=== PATIENT | female | born 1965 | race Caucasian/White ===

== ENCOUNTER 2020-09-20 11:24 | Emergency (ER) | payer MEDICARE, SELFPAY ==
[2020-09-20 11:39] VITALS: BP 142/88; PULSE 95; RESP 16; TEMP 36.6; O2SAT 99; BMI 30.9
--- NOTE | 2020-09-20 11:45 | HMH.EDUTC ---
[facility] [place] Clinical Impression: Allergic rhinitis Qualifiers: Allergic rhinitis trigger: unspecified Allergic rhinitis seasonality: unspecified Qualified Code(s): J30.9 - Allergic rhinitis, unspecified Disposition: Home, Self-Care Condition on Discharge: Good Instructions: Allergic Rhinitis, DI for Allergic Rhinitis Additional Instructions: Take allergy medication as prescribed Recommend discussing with your Family Doctor and waiting on Vaccine until you are not feeling ill Return if needed Straight to ER if any life threatening symptoms Follow up with Your Family Doctor if you are not feeling better in the next 48-72 hours Referrals: Sam Barrios MD [Primary Care Provider] - As needed Time of Disposition: 11:59 Medical Decision Making - Myles Inquiry Pt receiving controlled substance: No Myles was queried for this patient: No Vital Signs: 09/20/20 11:39 09/20/20 11:49 Temperature 97.9 F 98 F Temperature Source Oral Pulse Rate 89 Pulse Rate [Right] 95 H Respiratory Rate 16 16 Blood Pressure 138/85 Blood Pressure [Right Arm] 142/88 H Blood Pressure Mean [Right Arm] 106 Blood Pressure Source [Right Arm] Manual Cuff/ Palpation 02 Sat by Pulse Oximetry 99 Orders (Tests/Meds): ORDERS Category Date Time Status Covid-19 Nasal PCR ([facility]) Routine Lab 09/20/20 11:35 [place] [facility] [place] - General Stated complaint: cough,wants covid test Time Seen by Provider: 09/20/20 11:45 Mode of Arrival: Ambulatory Source of Information: Patient Limitations: No Limitations Description of Symptoms (Recalled from Triage Doc. by RN): pt is having a cough and nasal congestion. she wants a covid test. HEENT Symptoms (Recalled from RN notes): Yes (nasal congestion) Resp Symptoms (Recalled from RN notes): Yes (cough) Skin Symptoms (Recalled from RN notes): No MS Symptoms (Recalled from RN notes): No Functional Status (Recalled from RN notes): na - History of Present Illness Provider Complaint: Patient states that she has been fighting with allergies for close to a month States that she has been taking over the counter medication for it State that her PCP prescribed her some singular and she stopped taking it because it wasnt helping much States that she is scheduled for COVID vaccine tomorrow and was concerned where she was having allergy symptoms again and wanted to get tested for COVID - Related Data Allergies Allergy/AdvReac Type Severity Reaction Status Date / Time No Known Allergies Allergy Verified 09/20/20 11:38 - Worker's Comp Is this a Worker's Comp case?: No H History - Hepatitis A Screen Drug use history?: No High risk sexual behaviors?: No History of sexually transmitted infection?: No Currently employed?: No Childcare worker?: No Do you have indoor plumbing?: Yes Do you have electricity?: Yes Attestation statement:: This patient has been screened for Hepatitis A risk factors. I have reviewed the patient's past medical history: Yes - Social History Smoking Status: Current every day smoker # Packs/Day (cigarettes): 1 Alcohol Intake: never Occupational Status: other ROS Obtained: Yes All systems reviewed & no additional complaints, Yes Systems reviewed as appropriate & no additional complaints - Constitutional Constitutional: Reports system reviewed and no additional complaints, except as docu - ENT Ears, Nose, Mouth, and Throat: Reports system reviewed and no additional complaints, except as docu, Reports nasal congestion, Reports nasal discharge - Cardiovascular Cardiovascular: Reports system reviewed and no additional complaints, except as docu - Respiratory Respiratory: Reports system reviewed and no additional complaints, except as docu, Reports cough Physical Exam - General General appearance: alert, in no apparent distress - Expanded ENT Exam Nose exam: Present: other (reports clear drainage from nose) - Respiratory Respiratory exam: Present: no
[2020-09-20 11:49] VITALS: BP 138/85; PULSE 89; RESP 16; TEMP 36.6
== END 2020-09-20 12:04 | disposition home or self-care (01) ==
PROVIDERS: Emergency Provider Nurse Practitioner; PCP Family Medicine
DX: Z20.822 Contact with and (suspected) exposure to COVID-19 (principal); J30.9 Allergic rhinitis, unspecified
CPT/HCPCS: G0463; 99202; U0003